=== PATIENT | female | born 1985 | race Caucasian/White ===

== ENCOUNTER 2016-07-02 02:51 | Emergency (ER) | payer OTHER ==
[~2016-07-02] VITALS: Ht 157.5 cm; Wt 60.3 kg
[2016-07-02 03:23] VITALS: BP 114/67
[2016-07-02] MEDS ORDERED: IBUPROFEN600 M1 PO (03:33)
[2016-07-02] MEDS ORDERED: SUDAFED30 MG PO (03:33)
[2016-07-02] MEDS ORDERED: PREDNISONE20 M1 PO (03:33)
[2016-07-02] MEDS ORDERED: BACTRIM DS TAB1 EACH PO (03:33)
[2016-07-02] MEDS ORDERED: AFRIN30 ML NASB (03:33)
--- NOTE | 2016-07-02 03:34 | ED INFLUENZA/URI COMPLAINT ---
History of Present Illness General Chief Complaint: Upper Respiratory Sx/Fever Stated Complaint: SINUS INFECTION? Source: patient, family, old records Exam Limitations: no limitations Vital Signs & Intake/Output Vital Signs & Intake/Output Vital Signs Date Time Temp Pulse Resp B/P Pulse O2 O2 Flow FiO2 Ox Delivery Rate 07/02 0325 97 Room Air 07/02 0323 96.3 79 18 114/67 97 Room Air Allergies Coded Allergies: NO KNOWN ALLERGIES (12/10/10) Reconcile Medications Ibuprofen 600 MG TABLET 1 TAB PO Q6PRN PRN pain with food Oxymetazoline HCl (Afrin) 0.05 % SPRAY 2 SPRAY NASB BID sinusitis Prednisone 20 MG TABLET 1 TAB PO BID sinusitis Pseudoephedrine HCl (Sudafed) 30 MG TABLET 2 TAB PO Q6P PRN sinusitis Sulfamethoxazole/Trimethoprim (Bactrim Ds Tablet) 800 MG-160 MG TABLET 1 TAB PO BID sinusitis Triage Note: TRIAGE: PATIENT TO ER FROM HOME REPORTING"THINK I HAVE A SINUS INFECTION." REPORTING 10/10 THROBBING PAIN TO R SIDE OF FACE SINCE TUESDAY. MIGRAINE AT ONSET OF SX, DENIES NOW. Triage Nurses Notes Reviewed? yes Duration: week(s):, constant, continues in ED, getting worse Timing: recent history Severity: severe Prior Episodes/Possible Cause: illness exposure Modifying Factors: Worsens With: other. Associated Symptoms: cough, facial pain, headache, nasal congestion, nasal drainage, sinus infection LMP (ages 10-50): unknown : No Patient currently breastfeeds: No HPI: Over 2 weeks prior to admission patient had had cold treated with amoxicillin. Several days prior to admission she complains of progressive right maxillary sinus pain worse with nose blowing associated with nasal congestion migraine headache. She denies fever chills chest pain shortness of breath dysuria rash bleeding nausea vomiting diarrhea abdominal pain. Past History Travel History Traveled to [place] past 21 day No Medical History Any Pertinent Medical History? none Neurological: NONE EENT: NONE Cardiovascular: NONE Respiratory: NONE Gastrointestinal: NONE Hepatic: NONE Renal: NONE Musculoskeletal: NONE Psychiatric: NONE Endocrine: NONE Blood Disorders: NONE Cancer(s): NONE C.O.D. CLERK/Reproductive: NONE Tetanus Vaccine: 09/22/12 Surgical History Surgical History: non-contributory Psychosocial History What is your primary language Somali Tobacco Use: Refused to answer Family History Hx Contributory? No Review of Systems Review of Systems Constitutional: Reports: see HPI, malaise. EENTM: Reports: see HPI, nasal congestion. Respiratory: Reports: no symptoms. Cardiovascular: Reports: no symptoms. GI: Reports: no symptoms. Genitourinary: Reports: no symptoms. Musculoskeletal: Reports: no symptoms. Skin: Reports: no symptoms. Neurological/Psychological: Reports: see HPI, headache. Hematologic/Endocrine: Reports: no symptoms. Immunologic/Allergic: Reports: no symptoms. All Other Systems: Reviewed and Negative Physical Exam Physical Exam General Appearance: well developed/nourished, alert, awake, anxious, moderate distress Head: atraumatic, normal appearance Eyes: Bilateral: normal appearance, PERRL, EOMI. Ears, Nose, Throat: moist mucous membrane, Tympanic normal, nasal congestion, nasal drainage, right maxillary sinus percussion tenderness Neck: normal inspection, supple, full range of motion, trachea midline, lymphadenopathy (R), lymphadenopathy (L) Respiratory: normal breath sounds, chest non-tender, no respiratory distress, quiet respiration, lungs clear Cardiovascular: regular rate/rhythm, normal peripheral pulses, norml femoral pulses equa Peripheral Pulses: 4+ carotid (R), 4+ carotid (L) Gastrointestinal: normal bowel sounds, soft, non-tender, no organomegaly Back: normal inspection, normal range of motion Extremities: normal inspection, normal capillary refill, normal range of motion, no edema Neurologic/Psych: no motor/sensory deficits, awake, alert, oriented x 3, normal gait, normal mood/affect, 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 Skin: intact, normal color, warm/dry Lymphatic: adenopathy Core Measures Severe Sepsis Present: No Septic Shock Present: No Progress Differential Diagnosis: influenza, otitis, pharyngitis, sinusitis Plan of Care: Current Medications Sig/Lidya Start time Last Medication Dose Stop Time Status Admin Ibuprofen 600 MG ONCE ONE 07/02 329 UNVr (Motrin) 07/02 330 Oxymetazoline HCl 2 SPRAY ONCE ONE 07/02 329 UNVr (Afrin (No Drip)) 07/02 330 Prednisone 60 MG ONCE ONE 07/02 329 UNVr 07/02 330 Trimethoprim/ 1 TAB ONCE ONE 07/02 329 UNVr Sulfamethoxazole 03/17 0331 (Bactrim DS) Initial ED EKG: none Departure Departure Time of Disposition: 329 Disposition: HOME OR SELF CARE Condition: Stable Clinical Impression Primary Impression: Sinusitis, acute Qualifiers: Sinusitis location: maxillary Recurrence: not specified as recurrent Qualified Code: J01.00 - Acute maxillary sinusitis, unspecified Referrals: PATIENT HAS NO PRIMARY CARE DR (PCP/Family) Departure Forms: Customer Survey General Discharge Information Prescriptions: Current Visit Scripts Sulfamethoxazole/Trimethoprim (Bactrim Ds Tablet) 1 TAB PO BID #30 TAB Oxymetazoline HCl (Afrin) 2 SPRAY NASB BID #30 ML Prednisone 1 TAB PO BID #10 TAB Ibuprofen 1 TAB PO Q6PRN PRN pain #50 TAB with food Pseudoephedrine HCl (Sudafed) 2 TAB PO Q6P PRN sinusitis #24 TAB Ref 1
== END 2016-07-02 03:46 ==
LOC: ERH 02:51
DX: J01.90 Acute sinusitis, unspecified (principal)